=== PATIENT | female | born 2000 | race Two or more races ===

== ENCOUNTER 2024-09-07 10:58 | Emergency (ER) | payer OTHER ==
[~2024-09-07] VITALS: Ht 157.5 cm; Wt 47.6 kg
[2024-09-07] MEDS ORDERED: PROMETRIUM200 MG (11:02)
[2024-09-07] MEDS ORDERED: ACTIVELLA 1 MG1 EACH (11:03)
[2024-09-07] MEDS ORDERED: KETOROLAC TROMETHAMINE 30 MG VIAL IM STA (13:20)
== END 2024-09-07 15:54 | disposition home or self-care (01) ==
LOC: ER 11:00
DX: M79.672 Pain in left foot (principal)
CPT/HCPCS: 73630; 96372; 99283; J1885